=== PATIENT | male | born 1990 | race Caucasian/White ===

== ENCOUNTER 2018-05-01 09:40 | Emergency (ER) | payer BC ==
[~2018-05-01] VITALS: Ht 175.3 cm; Wt 70.3 kg
[~2018-05-01 09:40] MED LIST: ACEDIPPM PO
[2018-05-01] MEDS ORDERED: OMEPRAZOLE CAP 20M (10:15)
[2018-05-01] MEDS ORDERED: ATOM60 PO (10:17)
[2018-05-01 10:35] LABS: Source, Urine Clean Catch
[2018-05-01 10:41] LABS: Bilirubin, Urine Neg (Neg); Blood, Urine 1+ (Neg); Glucose Qualitative, Urine Neg (Neg); Ketones, Urine Neg (Neg); Leukocyte Esterase, Urine Neg (Neg); Nitrite, Urine Neg (Neg); Protein, Urine Neg (Neg); Specific Gravity, Urine 1.015 (1.003-1.022); Urobilinogen, Urine NORM (Normal)
[2018-05-01] MEDS ORDERED: Monodox100 MG PO (11:06)
[2018-05-01 11:07] LABS: Appearance, Urine Clear (Clear); Color, Urine Yellow (P-Yellow)
[2018-05-01 11:08] LABS: Bacteria Not Seen /hpf; Red Blood Cells, Urine 0-2 /hpf (0-2); Squamous Epithelial Cells Rare /hpf (Few); White Blood Cells, Urine Not Seen /hpf (0-5)
== END 2018-05-01 11:06 | disposition home or self-care (01) ==
LOC: ER 09:40
PROVIDERS: Physician Assistant
DX: N41.9 Inflammatory disease of prostate, unspecified (principal); R36.9 Urethral discharge, unspecified; Z88.8 Allergy status to other drugs, medicaments and biological substances; Z79.899 Other long term (current) drug therapy
CPT/HCPCS: 81001; 96372; 99283-25; J0696

== ENCOUNTER → 2018-05-19 | Outpatient (CLI) | payer BC ==
[~2018-05-19] MED LIST changes: +ATOM60 PO; +Monodox100 MG PO; +OMEPRAZOLE CAP 20M
[2018-05-19 20:46] LABS: Prostate Specific Antigen 0.558 ng/mL (0.000-4.000)
== END ==
LOC: LAB SHORT 20:02 → LAB 20:02
PROVIDERS: Hospitalist
DX: N41.0 Acute prostatitis (principal)
CPT/HCPCS: G0103

== ENCOUNTER → 2024-06-22 | Outpatient (CLI) | payer BC ==
[~2024-06-22] MED LIST changes: +AMPDEX10CR; +AMPDEX5; +DEXT5ER; +ESOM20; +RIFA550T2
[2024-06-22 14:40] LABS: Chlamydia Trachomatis Urine NOT DETECTED (NOT DETECT); Neisseria Gonorrhoea Urine NOT DETECTED (NOT DETECT)
== END ==
LOC: LAB 12:01 → LAB SHORT 12:01
PROVIDERS: Family Medicine
DX: Z11.3 Encounter for screening for infections with a predominantly sexual mode of transmission (principal)
CPT/HCPCS: 87491; 87591

== ENCOUNTER → 2024-12-13 | Outpatient (CLI) | payer BC ==
[2024-12-14 11:30] LABS: Chlamydia Trachomatis Urine NOT DETECTED (NOT DETECT); Neisseria Gonorrhoea Urine NOT DETECTED (NOT DETECT)
== END | disposition home or self-care (01) ==
LOC: LAB SHORT 18:15 → LAB 18:15
PROVIDERS: Family Medicine
DX: Z11.3 Encounter for screening for infections with a predominantly sexual mode of transmission (principal)
CPT/HCPCS: 87491; 87591